=== PATIENT | female | born 1935 | race Caucasian/White ===

== ENCOUNTER 2022-05-05 18:38 | Emergency (ER) | payer OTHER ==
[~2022-05-05] VITALS: Ht 160 cm; Wt 68.5 kg
[2022-05-05 19:19] VITALS: BP_SYST 193
--- NOTE | 2022-05-05 19:19 | NUR ---
Patient to ER bed 6 to gown for evaluation. Side rails up. Report given to Joy MAHAN.
--- NOTE | 2022-05-05 19:35 | NUR ---
Patient presents to ED from home with c/o skin rash around cast and uncomfortable cast on right forearm. Patient reports pain 5/10 on right wrist. Patient reports cast was place x1 week ago s/p mechanical for for a hairline fracture. Patient states "I was told I had a hairline fracture and they put this cast on my arm, but I dont like it. It's too hard I want to take it off and I feel like I'm gonna get a rash from it. Can I have a soft cast instead?" Patient cap refill <3 seconds. Patient denies loss of sensation, feeling cold in right extremity, and/or pain. Nad noted at this time. ER MD Martinez notified of patient placement in bed.
--- NOTE | 2022-05-05 19:40 | NUR ---
ER MD Martinez at bedside examining patient.
--- NOTE | 2022-05-05 20:08 | NUR ---
Radiology at bedside.
--- NOTE | 2022-05-05 20:34 | NUR ---
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
--- NOTE | 2022-05-05 20:38 | NUR ---
PATIENT CAST REMOVED WITH CAST SAW BY NIRMAL FERNANDEZ AND PMSCs CHECKED AFTER REMOVAL
[2022-05-05] MEDS ORDERED: PRED20TA PO (21:09)
--- NOTE | 2022-05-05 21:13 | NUR ---
PATIENT WRIST WRAPPED WITH NIMISHA BANDAGE AND SPLINTED WITH A VELOCRO WRIST SPLINT ON RIGHT WRIST AND PATIENT PMSCs CHECKED POST AND PRIOR TO PLACEMENT
[2022-05-05 21:25] VITALS: BP_SYST 155
--- NOTE | 2022-05-05 21:25 | NUR ---
Patient given written and verbal discharge instructions and verbalizes understanding. ER MD discussed with patient the results and treatment provided. Patient in stable condition. ID arm band removed. Rx of given. Patient educated on pain management and to follow up with PMD. Pain Scale 3/10. Opportunity for questions provided and answered. Medication side effect fact sheet provided. Patient A/Ox4, VSS, ambulatory, resp even and unlabored. Patient in stable condition upon discharge.
== END 2022-05-05 21:25 | disposition home or self-care (01) ==
LOC: SED 18:38
DX: L23.9 Allergic contact dermatitis, unspecified cause (principal); Z79.899 Other long term (current) drug therapy
CPT/HCPCS: 99283

== ENCOUNTER 2022-05-08 08:00 | Emergency (ER) | payer OTHER ==
[~2022-05-08] VITALS: Ht 160 cm; Wt 68.5 kg
[~2022-05-08 08:00] MED LIST: PRED20TA PO
--- NOTE | 2022-05-08 08:15 | NUR ---
Patient triaged and placed in waiting room. VSS and patient appears in no acute distress at this time. Accompanied by SELF, awaiting available bed, and MD notified of need for MSE.
--- NOTE | 2022-05-08 08:49 | NUR ---
Placed in room 08 . Placed on nurse monitoring, blood pressure machine and pulse oximeter. To gown for exam. Side rails up.
--- NOTE | 2022-05-08 09:28 | NUR ---
Pt bib self from home. CC General Weakness R/T recent mechanical fall. Pt states 1 week ago urgent care noted hairline fracture to right wrist. Pt has pain to right hip and has been compensating position for comfort causing lower back pain. Pt notes taking acetaminophen every 6 hours with side effect of itchy neck. Pt is also constipated with abdominal distention. Pt notes stools have been small and hard balls. Pt has history of HTn and thyroid disease, and osteoporosis. vss. aaox3, skin intact. Pt is resting without SOB no neuro defecits.
[2022-05-08 10:59] LABS: BASOPHILS # (AUTO) 0.1 K/uL (0.0-0.2); BASOPHILS % (AUTO) 0.8 % (0.0-2.0); EOSINOPHILS # (AUTO) 0.1 K/uL (0.0-0.4); EOSINOPHILS % (AUTO) 1.4 % (0.0-4.0); HEMATOCRIT 36.4 % (36-48); HEMOGLOBIN 12.5 g/dL (12.0-16.0); LYMPHOCYTES # (AUTO) 1.5 K/uL (1.0-5.5); LYMPHOCYTES % (AUTO) 19.6 % (20.5-51.5); MEAN CORPUSCULAR HEMOGLOBIN 31 pg (27-31); MEAN CORPUSCULAR HGB CONC 34 % (32-36); MEAN CORPUSCULAR VOLUME 90 fL (79.0-98.0); MONOCYTES # (AUTO) 0.4 K/uL (0.0-1.0); MONOCYTES % (AUTO) 5.6 % (1.7-9.3); NEUTROPHILS # (AUTO) 5.6 K/uL (1.8-7.7); NEUTROPHILS % (AUTO) 72.6 % (40.0-70.0); PLATELET COUNT (AUTO) 268 K/uL (130-430); RED BLOOD CELL COUNT(AUTO) 4.06 MIL/uL (4.2-6.2); RED CELL DISTRIBUTION WIDTH 13.2 % (9.0-15.0); WHITE BLOOD COUNT (AUTO) 7.8 K/uL (4.8-10.8)
[2022-05-08 11:12] LABS: PROTHROMBIN TIME 9.9 SECS (9.5-12.5)
[2022-05-08 11:19] LABS: BILIRUBIN,URINE NEGATIVE (NEGATIVE); BLOOD, URINE NEGATIVE (NEGATIVE); CLARITY/URINE CLEAR (CLEAR); COLOR,URINE YELLOW (YELLOW); GLUCOSE,URINE NEGATIVE (NEGATIVE); KETONES,URINE NEGATIVE (NEGATIVE); LEUKOCYTE ESTERASE ,URINE NEGATIVE (NEGATIVE); NITRITE, URINE NEGATIVE (NEGATIVE); PROTEIN URINE NEGATIVE (NEGATIVE); UROBILINOGEN,URINE 0.2 (0.2-1.0)
[2022-05-08 11:32] LABS: ANION GAP 6 (5-15); CALCIUM 9.7 mg/dL (8.4-11.0); CHLORIDE 107 mmol/L (98-107); CREATININE 0.84 mg/dL (0.55-1.30); GLUCOSE 99 mg/dL (70-99); UREA NITROGEN, BLOOD 12 mg/dL (8-21)
[2022-05-08 11:41] LABS: ALANINE AMINOTRANSFERASE 52 U/L (12-78); ALBUMIN 3.6 g/dL (3.4-4.8); ASPARTATE AMINOTRANSFERASE 38 U/L (10-37); TOTAL BILIRUBIN 0.3 mg/dL (0.0-1.0)
--- NOTE | 2022-05-08 12:43 | NUR ---
PT WITH [facility] [employer]. FOR CT AND SCANS.
[2022-05-08] MEDS ORDERED: NS 500 ML IV ONE (14:15)
[2022-05-08] MEDS ORDERED: TRAM50TA2 PO (14:27)
[2022-05-08] MEDS ORDERED: POLY17PO4 PO (14:27)
--- NOTE | 2022-05-08 15:13 | NUR ---
Medicated per MD orders. IVF infusing with no s/s of infiltration at this time. Will cont to monitor
[2022-05-08 16:10] VITALS: BP_SYST 147
--- NOTE | 2022-05-08 16:10 | NUR ---
Patient given written and verbal discharge instructions and verbalizes understanding. ER MD discussed with patient the results and treatment provided. Patient in stable condition. ID arm band removed. IV catheter removed intact and dressing applied, no active bleeding. Opportunity for questions provided and answered. Medication side effect fact sheet provided.
== END 2022-05-08 16:10 | disposition home or self-care (01) ==
LOC: SED 08:00
DX: S32.020A Wedge compression fracture of second lumbar vertebra, initial encounter for closed fracture (principal); R63.0 Anorexia; K59.00 Constipation, unspecified; I10 Essential (primary) hypertension; K21.9 Gastro-esophageal reflux disease without esophagitis; Z79.899 Other long term (current) drug therapy; W18.30XA Fall on same level, unspecified, initial encounter; Y93.89 Activity, other specified; Y92.89 Other specified places as the place of occurrence of the external cause; Y99.8 Other external cause status
CPT/HCPCS: 99285; 72131; 96360; 71045; 80053; 83880; 85025; 85610; 85730; 87040; 87086; 84484; 36415; 93005; 73110; 76376; 74176; 83605; 81003; J7030